=== PATIENT | male | born 1990 | race Caucasian/White ===

== ENCOUNTER 2021-11-15 11:09 | Emergency (ER) | payer SELFPAY ==
[~2021-11-15] VITALS: Ht 172.7 cm; Wt 79.5 kg
[2021-11-15] MEDS ORDERED: DEXAMETHASONE6 M1 PO ×2 (14:48→14:53)
[2021-11-15] MEDS ORDERED: GUAIFEN-CODEINE5 ML PO ×2 (14:48→14:53)
[2021-11-15] MEDS ORDERED: RT ALBUTEROL CC18 GM IH ×2 (14:48→14:53)
[2021-11-15] MEDS ORDERED: MORGIDOX 1X100100 MG PO ×2 (14:48→14:53)
[2021-11-15] MEDS ORDERED: AEROCHAMBER1 DEV IH (14:48)
[2021-11-15] MEDS ORDERED: AEROCHAMBER1 DEV INH (14:53)
[2021-11-15 15:01] VITALS: BP 136/74
== END 2021-11-15 15:02 | disposition home or self-care (01) ==
LOC: ED 11:09
DX: U07.1 COVID-19 (principal); J12.82 Pneumonia due to coronavirus disease 2019